=== PATIENT | female | born 1990 | race Caucasian/White ===

== ENCOUNTER 2023-01-18 20:52 | Emergency (ER) | payer OTHER, SELFPAY ==
[2023-01-18 21:19] VITALS: BP 107/78; PULSE 99; TEMP 36.8; O2SAT 96; BMI 21.1
--- NOTE | 2023-01-18 21:43 | CRLHL7_ITS ---
For Patients: As a result of the Century Cures Act, medical imaging exams and procedure reports are released immediately into your electronic medical record. You may view this report before your referring provider. If you have questions, please contact your health care provider. INDICATION: Left side pain. TECHNIQUE: CT abdomen and pelvis without contrast. COMPARISON: None. FINDINGS: Lower chest: Unremarkable. Liver: Normal in size and attenuation. Gallbladder and bile ducts: No stones or inflammation. No biliary ductal dilatation. Spleen: Normal in size. Adrenal glands: Normal in size. No nodules. Pancreas: Unremarkable. No mass or inflammation. Kidneys: Normal in size. No stones or hydronephrosis. GI tract: Unremarkable. Normal in caliber. Normal appendix. Lymph nodes: No lymphadenopathy. Vasculature: Unremarkable. Abdominal wall/Omentum/Peritoneum: Unremarkable. No free air or significant free fluid. Pelvis: Unremarkable. Bones: Unremarkable for age. IMPRESSION: No acute abdominal or pelvic abnormality on this noncontrast examination. No evidence of nephrolithiasis or urolithiasis. Please note that all CT scans at this facility use dose modulation, iterative reconstruction, and/or weight-based dosing when appropriate to reduce radiation dose to as low as reasonably achievable. Dictated by Evgeny Zaragoza MD @ 01/18/2023 10:40:49 PM (Electronically Signed)
--- NOTE | 2023-01-18 21:45 | ED_ITS ---
HPI - General Adult General Chief complaint: Flank Pain Stated complaint: UTI Time Seen by Provider: 01/18/23 21:21 History of Present Illness HPI narrative: Patient is a 32-year-old woman who seen earlier in the clinic for dysuria and left-sided flank pain. Her UA in the clinic was somewhat equivocal and there was some thought that she should wait till her culture comes back before starting any antibiotics. Patient has had continued dysuria but no hematuria. She has significant CVA tenderness on the left. No nausea no vomiting no fevers no chills. No other complaints or concerns patient is otherwise in good health but does have a long history of urinary tract infections. She states she is not at this time. Related Data Previous Rx's Medication Instructions Recorded ciprofloxacin HCl 250 mg tablet 250 mg PO BID #14 tabs 01/18/23 Allergies Allergy/AdvReac Type Severity Reaction Status Date / Time Sulfa (Sulfonamide Allergy Verified 01/18/23 21:17 Antibiotics) Review of Systems Status of ROS: Reports: 10 or more systems reviewed and unremarkable except as noted in History and below PFSH PFSH Surgical History Status post open reduction and internal fixation (ORIF) of fracture ?Z98.890 - Other specified postprocedural states (ICD-10) ?Z87.81 - Personal history of (healed) traumatic fracture (ICD-10) S/P LEEP ?Z98.890 - Other specified postprocedural states (ICD-10) Social History Smoking Status: Never smoker Exam Narrative: Exam Narrative: EXAM GENERAL: Patient appears comfortable and well. EYES: No scleral icterus. ENT: Tympanic membranes and oropharynx normal. THYROID: no thyroid nodules or thyromegaly. LYMPH: No supraclavicular or cervical lymphadenopathy. SKIN: Visible skin seen during exam normal or with benign process only. EXT: No dependent lower extremity pedal edema. HEART: Regular rate and rhythm with no murmurs, rubs, or gallops. LUNGS: Clear to auscultation bilaterally with no crackles or wheezes. ABD: Soft, non tender, non distended. Severe CVA tenderness on the left. PSYCH: Good eye contact, speech is not pressured. Const: Vital Signs, click to edit/add: Vital Signs - 24 hr 01/18/23 21:19 Temperature 98.3 F Pulse Rate [Left P ulse Oximeter] 99 Blood Pressure [Le ft Upper Arm] 107/78 Pulse Oximetry 96 Oxygen Delivery Me thod Room Air Course Course Hospital Course: Patient seen examined serum CBC CMP ordered. If is negative will proceed with CT of the abdomen pelvis stone protocol. Vital Signs Vital signs: Initial Vital Signs Temperature 98.3 F 01/18/23 21:19 Temperature Source Temporal Artery Scan 01/18/23 21:19 Pulse Rate 99 01/18/23 21:19 Pulse Rhythm Regular 01/18/23 21:19 Pulse Strength 3+ Normal 01/18/23 21:19 Blood Pressure 107/78 01/18/23 21:19 Blood Pressure Mean 87 01/18/23 21:19 Pulse Oximetry 96 01/18/23 21:19 Oxygen Delivery Method Room Air 01/18/23 21:19 Vital Signs Temperature 98.3 F 01/18/23 21:19 Pulse Rate 99 01/18/23 21:19 Blood Pressure 107/78 01/18/23 21:19 Pulse Oximetry 96 01/18/23 21:19 Oxygen Delivery Method Room Air 01/18/23 21:19 Temperature 98.3 F 01/18/23 21:19 Pulse Rate 99 01/18/23 21:19 Blood Pressure 107/78 01/18/23 21:19 Pulse Oximetry 96 01/18/23 21:19 Oxygen Delivery Method Room Air 01/18/23 21:19 Medical Decision Making [facility] Narrative Medical decision making narrative: Patient is a 32-year-old woman who has signs of urinary tract infection seen in the clinic earlier today. She underwent a CT of the abdomen pelvis no signs of pyelonephritis kidney stones or any significant pathology. Workup was otherwise unremarkable exam is stable although she does have significant CVA tenderness. I did place her on ciprofloxacin 500 mg b.i.d. for the next week and with outpatient follow-up with her primary physician as needed. Differential Diagnosis Differential Diagnosis: UTI pyelonephritis renal lithiasis pancreatitis acute abdomen appendicitis Lab Data Labs: Lab Results 01/18/23 Range/Units 21:58 WBC 10.85 (4.50-11.00) K/uL RBC 4.63 (4.00-5.20) m/uL Hgb 13.7 (12.0-16.0) gm/dL Hct 41.9 (33.0-51.0) % MCV 91 (80-100) fL MCH 30 (26-34) pg MCHC 33 (32-36) gm/dL RDW Coeff of Krzysztof 12.5 (11.5-15.5) % Plt Count 222 (140-440) K/uL Neut % (Auto) 73.6 H (42.0-72.0) % Lymph % (Auto) 14.5 L (20-44) % Dare % (Auto) 5.3 (0.0-11.0) % Eos % (Auto) 5.6 (0.0-7.0) % Baso % (Auto) 0.7 (0.0-3.0) % Neut # (Auto) 8.00 H (1.7-7.0) K/uL Lymph # (Auto) 1.60 (0.90-2.90) K/uL Dare # (Auto) 0.60 (0.00-0.90) K/UL Eos # (Auto) 0.61 H (0.00-0.50) K/uL Baso # (Auto) 0.08 (0.00-0.30) K/uL Sodium 138 (135-149) mmol/L Potassium 3.9 (3.6-5.1) mmol/L Chloride 104 (96-114) mmol/L Carbon Dioxide 24 (20-32) mmol/L BUN 13 (5-24) mg/dL Creatinine 0.7 (0.5-1.5) mg/dL Estimated Creat Clear 102.86 Estimated GFR 117 ml/min Glucose 96 (60-115) mg/dL Calcium 8.8 (8.4-10.6) mg/dL Total Bilirubin 1.5 (0.1-1.5) mg/dL AST 21 (12-35) U/L ALT 18 (4-35) U/L Alkaline Phosphatase 66 (40-150) U/L Total Protein 7.5 (6.0-8.3) g/dL Albumin 4.6 (3.3-5.0) g/dL HCG, Qual Negative (Negative) Discharge Plan Discharge Clinical Impression: Urinary tract infection Patient Disposition: Home, Self-Care Condition: Stable Instructions: Urinary Tract Infection in Women (ED) Additional Instructions: Cipro Rest Fluids Tylenol Motrin Activity Level: No Restrictions Discharge Diet: Regular Prescriptions: No Action ciprofloxacin HCl 250 mg tablet 250 mg PO BID Qty: 14 0RF Patient Comments: patient unable to get precription until tomorrow due to pharmacy not having medication Follow Up/Referrals: Girish Bourgeois MD [Primary Care Provider] - Stand Alone Forms: [employer] Info Instructions
[2023-01-18 22:08] LABS: Basophils Absolute Auto 0.08 K/uL (0.00-0.30); Basophils Percent Auto 0.7 % (0.0-3.0); Eosinophils Absolute Auto 0.61 K/uL (0.00-0.50); Eosinophils Percent Auto 5.6 % (0.0-7.0); Hematocrit 41.9 % (33.0-51.0); Hemoglobin* 13.7 gm/dL (12.0-16.0); Immature Granulocytes Abs Auto 0.03 K/uL (0.00-0.30); Immature Granulocytes Pct Auto 0.3 %; Lymphocytes Percent Auto 14.5 % (20-44); Mean Corpuscular HGB Conc 33 gm/dL (32-36); Mean Corpuscular Hemoglobin 30 pg (26-34); Mean Corpuscular Volume 91 fL (80-100); Monocytes Percent Auto 5.3 % (0.0-11.0); Neutrophils Percent Auto 73.6 % (42.0-72.0); Platelet Count* 222 K/uL (140-440); RDW Coefficient of Variation % 12.5 % (11.5-15.5); Red Blood Count 4.63 m/uL (4.00-5.20); White Blood Count* 10.85 K/uL (4.50-11.00)
[2023-01-18 22:13] LABS: Slide Review Reflex No
[2023-01-18 22:22] LABS: Albumin* 4.6 g/dL (3.3-5.0); Chloride* 104 mmol/L (96-114); Sodium* 138 mmol/L (135-149)
[2023-01-18 22:23] LABS: Potassium* 3.9 mmol/L (3.6-5.1)
[2023-01-18 22:25] LABS: Alkaline Phosphatase* 66 U/L (40-150); Aspartate Amino Transferase* 21 U/L (12-35); Bilirubin Total* 1.5 mg/dL (0.1-1.5); Blood Urea Nitrogen* 13 mg/dL (5-24); Carbon Dioxide* 24 mmol/L (20-32); Creatinine* 0.7 mg/dL (0.5-1.5); Est. Creatinine Clearance* 102.86; Estimated Glomerular Filt Rate 117 ml/min; Glucose* 96 mg/dL (60-115); Total Protein* 7.5 g/dL (6.0-8.3)
[2023-01-18 22:26] LABS: Alanine Aminotransferase* 18 U/L (4-35); Calcium* 8.8 mg/dL (8.4-10.6)
[2023-01-18 22:47] LABS: HCG Qualitative Serum* Negative (Negative)
== END 2023-01-18 23:27 | disposition home or self-care (01) ==
PROVIDERS: Emergency Provider Internal Medicine; PCP Family Medicine
DX: N39.0 Urinary tract infection, site not specified (principal)
CPT/HCPCS: 36415; 74176; 80053; 84703; 85025; 87086; 87186; 99283; 99284

== ENCOUNTER 2023-05-20 11:51 | Outpatient (CLI) | payer OTHER, SELFPAY | END 2023-05-20 11:52 | disposition home or self-care (01) | PROVIDERS: PCP Family Medicine; Visit Provider Family Medicine | DX: R63.4 Abnormal weight loss (principal); N64.52 Nipple discharge; F41.9 Anxiety disorder, unspecified; Z13.29 Encounter for screening for other suspected endocrine disorder | CPT/HCPCS: 84146; 84443 ==

== ENCOUNTER 2023-05-22 19:25 | Emergency (ER) | payer OTHER, SELFPAY ==
[2023-05-22] VITALS (8 sets, daily range): BP systolic 117–132; BP diastolic 79–82; PULSE 81–106; RESP 18; TEMP 36.1; O2SAT 97–98; BMI 19.8
--- NOTE | 2023-05-22 19:41 | ED.GENADULT ---
HPI - General Adult General Chief complaint: Headache/Migraine Stated complaint: Throat swelling, headache Time Seen by Provider: 05/22/23 19:31 History of Present Illness HPI narrative: patient is concerned about the throat tightening up and seen PCP given some anxiety meds and had globus. was seen 2 days ago. taken and continues with throat issue. gets strep throat a lot and feels like that. concerned uvula is swollen, has deluca, difficulty swelling, and tired. feels something else is the issue 32-year-old woman presenting to the emergency department continue complaint of discomfort and pain in her throat. She is worried that her uvula in particular is swollen. Having difficulty swallowing. Review of records it looks like was just seen and diagnosed with of agoraphobia and suspected globus in primary care evaluation. Has not had a fever. Does have more remote history of tonsillar/peritonsillar abscess per her description that was drained. She does not recall which side. Sounds like she is worried that this might be going on again. She had been evaluated on numerous occasions prior to making this diagnosis before. Was initiated on sertraline and given alprazolam. She says this has not changed her symptoms. Throat lozenges was not helpful. Related Data Previous Rx's Medication Instructions Recorded alprazolam 0.5 mg tablet 0.5 mg PO TID PRN anxiety #20 tabs 05/20/23 sertraline 50 mg tablet See Rx Instructions PO QDAY #30 05/20/23 tabs penicillin V potassium 250 mg/5 mL 500 mg (10 mL) PO BID 10 days #200 05/22/23 oral solution mL prednisolone 15 mg/5 mL oral 40 mg (13.3333 mL) PO DAILY 5 days 05/22/23 solution #80 mL Allergies Allergy/AdvReac Type Severity Reaction Status Date / Time cephalexin Allergy Unknown Anxiety Verified 05/22/23 19:35 Sulfa (Sulfonamide Allergy Verified 05/22/23 19:35 Antibiotics) Review of Systems Status of ROS: Reports: 6 or more systems reviewed and unremarkable except as noted in History and below [facility] Medical History History of abnormal cervical Pap smear ?Z87.42 - Personal history of other diseases of the female genital tract (ICD-10) History of gestational diabetes ?Z86.32 - Personal history of gestational diabetes (ICD-10) Surgical History Status post open reduction and internal fixation (ORIF) of fracture ?Z98.890 - Other specified postprocedural states (ICD-10) ?Z87.81 - Personal history of (healed) traumatic fracture (ICD-10) S/P LEEP ?Z98.890 - Other specified postprocedural states (ICD-10) Social History Smoking Status: Never smoker Do you use any of these nicotine containing products: None How often do you have a drink containing alcohol: never AUDIT-C Alcohol total score: 0 Non-prescribed substance use: denies use Little interest or pleasure in doing things: not at all Feeling down, depressed, or hopeless: not at all Exam Narrative: Exam Narrative: Severe gag reflex limiting exam. Oropharynx is with trace erythema. Perhaps more prominent uvula. She is breathing easily I do not hear any stridor. Lungs are clear. Does appear a little anxious. Neck is supple without lymphadenopathy. No is a supraclavicular crepitus. Lungs are clear. Heart in elevated rate and rhythm without murmur rub or gallop. Extremities are well perfused without edema. No rashes apparent. Const: Vital Signs, click to edit/add: Vital Signs - 24 hr 05/22/23 19:28 05/22/23 20:31 05/22/23 20:32 Temperature 97.0 F L Pulse Rate 88 85 Pulse Rate [Right Pulse Oximeter] 106 H Respiratory Rate 18 Blood Pressure 117/79 Blood Pressure [Ri ght Upper Arm] 132/82 Pulse Oximetry 98 98 98 Oxygen Delivery Me thod Room Air Room Air 05/22/23 20:45 05/22/23 21:00 05/22/23 21:15 Temperature Pulse Rate 81 81 82 Pulse Rate [Right Pulse Oximeter] Respiratory Rate Blood Pressure Blood Pressure [Ri ght Upper Arm] Pulse Oximetry 98 97 97 Oxygen Delivery Me thod 05/22/23 21:30 05/22/23 21:45 Temperature Pulse Rate 91 90 Pulse Rate [Right Pulse Oximeter] Respiratory Rate Blood Pressure Blood Pressure [Ri ght Upper Arm] Pulse Oximetry 97 97 Oxygen Delivery Me thod Documenting provider has reviewed patient's vital signs: yes Course Vital Signs Vital signs: Initial Vital Signs Temperature 97.0 F L 05/22/23 19:28 Temperature Source Temporal Artery Scan 05/22/23 19:28 Pulse Rate 106 H 05/22/23 19:28 Pulse Rhythm Regular 05/22/23 19:28 Respiratory Rate 18 05/22/23 19:28 Blood Pressure 132/82 05/22/23 19:28 Blood Pressure Mean 98 05/22/23 19:28 Blood Pressure Position Sitting 05/22/23 19:28 Pulse Oximetry 98 05/22/23 19:28 Oxygen Delivery Method Room Air 05/22/23 19:28 Vital Signs Temperature 97.0 F L 05/22/23 19:28 Pulse Rate 106 H 05/22/23 19:28 Respiratory Rate 18 05/22/23 19:28 Blood Pressure 132/82 05/22/23 19:28 Pulse Oximetry 98 05/22/23 19:28 Oxygen Delivery Method Room Air 05/22/23 19:28 Temperature 97.0 F L 05/22/23 19:28 Pulse Rate 90 05/22/23 21:45 Respiratory Rate 18 05/22/23 19:28 Blood Pressure 117/79 05/22/23 20:32 Pulse Oximetry 97 05/22/23 21:45 Oxygen Delivery Method Room Air 05/22/23 20:31 Medical Decision Making MDM Narrative Medical decision making narrative: Certainly anxiety is amplifying some of her symptoms are maybe globus but given history we can go ahead and do an IV contrasted CT scan soft tissue neck. Labs are reassuring. There is normal CBC and CRP. I would suspect less likely that there will be any abscess. She is difficult to visualize for tonsillitis. Did receive a L of normal saline in anticipation of IV contrast. CT scan was reviewed by me. I do not see overt abscess or rim enhancement. Radiology over-read as below. Impression: Mild nonspecific prominence of the left greater than right palatine tonsil which could represent mild tonsillitis/pharyngitis change. No evidence of pathologically enlarged lymph node or rim enhancing fluid collection. Presumably what where there is discomfort there could be some inflammation. Might benefit from a course of steroids. Did receive Solu-Medrol in the IV she is also somewhat intolerant at this point of pills. Will continue course of prednisolone. If still having discomfort in couple of days penicillin is also made available. If this discomfort continues then I suppose evaluation by ENT would be in order See patient discharge plan Lab Data Lab results reviewed: Yes I reviewed the patient's lab results Labs: Lab Results 05/22/23 05/22/23 Range/Units 20:00 20:10 WBC 8.60 (4.50-11.00) K/uL RBC 4.93 (4.00-5.20) m/uL Hgb 14.6 (12.0-16.0) gm/dL Hct 43.8 (33.0-51.0) % MCV 89 (80-100) fL MCH 30 (26-34) pg MCHC 33 (32-36) gm/dL RDW Coeff of Krzysztof 11.6 (11.5-15.5) % Plt Count 276 (140-440) K/uL Neut % (Auto) 69.0 (42.0-72.0) % Lymph % (Auto) 23.3 (20-44) % Elbert % (Auto) 6.6 (0.0-11.0) % Eos % (Auto) 0.3 (0.0-7.0) % Baso % (Auto) 0.6 (0.0-3.0) % Neut # (Auto) 5.93 (1.7-7.0) K/uL Lymph # (Auto) 2.00 (0.90-2.90) K/uL Elbert # (Auto) 0.60 (0.00-0.90) K/UL Eos # (Auto) 0.03 (0.00-0.50) K/uL Baso # (Auto) 0.05 (0.00-0.30) K/uL Abs Immat Gran (auto) 0.02 (0.00-0.30) K/uL Imm/Tot Granulo (auto) 0.2 % C-Reactive Protein 0.5 (0.5-1.0) mg/dL Group A Strep DNA NOT DETECTED (Not Detectd) Discharge Plan Discharge Clinical Impression: Enlargement of left palatine tonsil Patient Disposition: Home, Self-Care Condition: Stable Additional Instructions: Can use anesthetic throat lozenges or sprays like Sucrets or Chloraseptic. Can take ibuprofen or acetaminophen or naproxen. I heard you say that you have ear nose and throat follow-up. As you were saying this is a recurrent problem, I think it would be good to continue with that appointment. If does not seem to be improving in a couple of days, I also sent in an antibiotic for you. Of course return for any indication of worsening difficulty swallowing such that you are not able to manage your saliva or increased difficulty breathing. Hydrate. Consider sleeping under the mist of a cool mist humidifier. Prescriptions: New prednisolone 15 mg/5 mL solution 40 mg PO DAILY 5 Days Qty: 80 0RF penicillin V potassium 250 mg/5 mL recon soln 500 mg PO BID 10 Days Qty: 200 0RF No Action sertraline 50 mg tablet See Rx Instructions PO QDAY Qty: 30 5RF Rx Instructions: 25 mg QD for 6D, then 50 mg QD orally every day; alprazolam 0.5 mg tablet 0.5 mg PO TID PRN (Reason: anxiety) Qty: 20 1RF Follow Up/Referrals: Girish Bourgeois MD [Primary Care Provider] - Stand Alone Forms: [employer] Info Instructions
--- NOTE | 2023-05-22 19:57 | CRLHL7_ITS ---
For Patients: As a result of the Cures Act, medical imaging exams and procedure reports are released immediately into your electronic medical record. You may view this report before your referring provider. If you have questions, please contact your health care provider. Indication: Persistent sensation of throat swelling, history of abscess Technique: Volumetric multidetector CT images of the cervical soft tissues were obtained after the administration of low osmolar intravenous contrast. 57 cc Isovue 370 low osmolar intravenous contrast Comparison: None available. Findings: The partially visualized brain parenchyma is normal in attenuation without evidence of abnormal enhancement. The orbits and their contents are within normal limits. The paranasal sinuses are clear. The mastoid air cells are clear. The nasopharynx is unremarkable. The fossae of Rosenmuller are clear. There is mild asymmetrical enlargement of the left greater than right palatine tonsil. The oropharynx is unremarkable. The hypopharynx is clear. The deep spaces of the neck are otherwise preserved. The vocal folds are nonthickened with symmetrical appearance. The thyroid gland is normal in attenuation. There is no evidence of pathologically enlarged cervical lymph node. The jugular veins are patent. The carotid arteries demonstrate no significant atherosclerotic narrowing. The lung apices are clear. The cervical vertebral body heights are grossly maintained with mild straightening of the normal cervical lordosis. There is no significant spondylolisthesis or displaced fracture. Impression: Mild nonspecific prominence of the left greater than right palatine tonsil which could represent mild tonsillitis/pharyngitis change. No evidence of pathologically enlarged lymph node or rim enhancing fluid collection. Please note that all CT scans at this facility use dose modulation, iterative reconstruction, and/or weight-based dosing when appropriate to reduce radiation dose to as low as reasonably achievable. Dictated by Ousmane Escobar MD @ 05/22/2023 8:55:23 PM (Electronically Signed)
[2023-05-22] MEDS: 0.9 % SODIUM CHLORIDE 1000 ml 1,000 ML IV (20:13)
[2023-05-22 20:16] LABS: Basophils Absolute Auto 0.05 K/uL (0.00-0.30); Basophils Percent Auto 0.6 % (0.0-3.0); Eosinophils Absolute Auto 0.03 K/uL (0.00-0.50); Eosinophils Percent Auto 0.3 % (0.0-7.0); Hematocrit 43.8 % (33.0-51.0); Hemoglobin* 14.6 gm/dL (12.0-16.0); Immature Granulocytes Abs Auto 0.02 K/uL (0.00-0.30); Immature Granulocytes Pct Auto 0.2 %; Lymphocytes Percent Auto 23.3 % (20-44); Mean Corpuscular HGB Conc 33 gm/dL (32-36); Mean Corpuscular Hemoglobin 30 pg (26-34); Mean Corpuscular Volume 89 fL (80-100); Monocytes Percent Auto 6.6 % (0.0-11.0); Neutrophils Absolute Auto 5.93 K/uL (1.7-7.0); Platelet Count* 276 K/uL (140-440); RDW Coefficient of Variation % 11.6 % (11.5-15.5); Red Blood Count 4.93 m/uL (4.00-5.20)
[2023-05-22 20:21] LABS: Slide Review Reflex No
[2023-05-22 20:35] LABS: C Reactive Protein* 0.5 mg/dL (0.5-1.0)
[2023-05-22 20:35] LABS: Strep A DNA Probe* NOT DETECTED (Not Detectd)
[2023-05-22] MEDS: METHYLPREDNISOLONE SOD SUCC 62.5 MG/ML (125) 80 MG IVP (21:52)
== END 2023-05-22 22:01 | disposition home or self-care (01) ==
PROVIDERS: Emergency Provider Family Medicine; PCP Family Medicine
DX: J35.1 Hypertrophy of tonsils (principal)
CPT/HCPCS: 36415; 70491; 85025; 86140; 87651; 96374; 99284; J2930; J7030; Q9967

== ENCOUNTER 2023-05-26 17:29 | Emergency (ER) | payer OTHER, SELFPAY ==
[2023-05-26 17:46] VITALS: BP 114/82; PULSE 91; RESP 16; TEMP 36.6; O2SAT 98; BMI 20.1
--- NOTE | 2023-05-26 18:35 | ED.GENADULT ---
HPI - General Adult General Chief complaint: Ear/Nose/Throat Problem Stated complaint: Here on -tonsilitis [id number] improv Time Seen by Provider: 05/26/23 17:44 History of Present Illness HPI narrative: This 32-year-old female reports some symptoms of sore throat and swelling in her throat that started about 6 days ago. She went into her clinic physician who was unable to see her throat very well because she hold her tongue rather high and has class 3 mallipatti visualization of her oropharynx. She was treated for with an anxiety medicine as the provider thought that her symptoms were due to anxiety alone. She returned to the emergency department 4 days ago here because of sore throat and similar symptoms from the couple days before. She had labs and CT imaging with IV contrast done. These returned with reassuring findings. There was some mild swelling of her left tonsil. She received a prescription for penicillin and a steroid. She has been taking these medicines and states that she is not feeling any better. She does not report any fevers or cough. She states that she does feel flushed at times and sometimes feels lightheaded. She arrives here with normal vital signs. Related Data Previous Rx's Medication Instructions Recorded alprazolam 0.5 mg tablet 0.5 mg PO TID PRN anxiety #20 tabs 05/20/23 sertraline 50 mg tablet See Rx Instructions PO QDAY #30 05/20/23 tabs penicillin V potassium 250 mg/5 mL 500 mg (10 mL) PO BID 10 days #200 05/22/23 oral solution mL prednisolone 15 mg/5 mL oral 40 mg (13.3333 mL) PO DAILY 5 days 05/22/23 solution #80 mL Allergies Allergy/AdvReac Type Severity Reaction Status Date / Time cephalexin Allergy Unknown Anxiety Verified 05/22/23 19:35 Sulfa (Sulfonamide Allergy Verified 05/22/23 19:35 Antibiotics) Review of Systems Status of ROS: Reports: 10 or more systems reviewed and unremarkable except as noted in History and below Narrative: Constitutional: No fevers, no weight gain or loss. Eyes: No discharge. No vision changes. HENT: No congestion, no ear pain. Sore throat and a feeling of swelling as described above. Cardiovascular: No chest pain, no palpitations. Respiratory: No shortness of breath, no wheezes, no cough. Gastrointestinal: No abdominal pain, no vomiting, no diarrhea. Genitourinary: No dysuria, no hematuria. Musculoskeletal: Normal range of motion. Skin: No rashes, no pruritis. Neurological: No dizziness, weakness, sensory change, speech change. Endo/Heme/Allergies: No bruising or bleeding. No polydipsia. Pysch: no suicidality, no anxiety, no insomnia. All other systems reviewed and are negative. [facility] Medical History History of abnormal cervical Pap smear ?Z87.42 - Personal history of other diseases of the female genital tract (ICD-10) History of gestational diabetes ?Z86.32 - Personal history of gestational diabetes (ICD-10) Surgical History Status post open reduction and internal fixation (ORIF) of fracture ?Z98.890 - Other specified postprocedural states (ICD-10) ?Z87.81 - Personal history of (healed) traumatic fracture (ICD-10) S/P LEEP ?Z98.890 - Other specified postprocedural states (ICD-10) Social History Smoking Status: Never smoker Do you use any of these nicotine containing products: None How often do you have a drink containing alcohol: never AUDIT-C Alcohol total score: 0 Non-prescribed substance use: denies use Little interest or pleasure in doing things: not at all Feeling down, depressed, or hopeless: not at all Exam Narrative: Exam Narrative: Constitutional: Well-developed, well-nourished, no acute distress. HEENT: Normocephalic, atraumatic. Oropharynx has some mild erythema without exudate or tonsillar hypertrophy. Neck: Normal range of motion. Nontender. Supple. Heart: Regular. No murmurs. Normal rate. Intact distal pulses. Lungs: Clear to auscultation. No chest discomfort. No wheezes, rhonchi, or rales. Abdomen: Normal bowel sounds. Nontender. No rebound tenderness. Genitalia: Deferred. Back: No midline tenderness. Normal range of motion. Extremities: Normal range of motion. No injury. Skin: Intact. No rash. Warm. No erythema or pallor. Neurologic: No altered sensation. No weakness. Alert and oriented. Psychiatric: No suicidality. No anxiety or depression. No insomnia. Nursing notes and vitals signs are reviewed. Const: Vital Signs, click to edit/add: Vital Signs - 24 hr 05/26/23 17:46 Temperature 97.9 F Pulse Rate [Right Pulse Oximeter] 91 Respiratory Rate 16 Blood Pressure [Ri ght Upper Arm] 114/82 Pulse Oximetry 98 Oxygen Delivery Me thod Room Air Course Vital Signs Vital signs: Initial Vital Signs Temperature 97.9 F 05/26/23 17:46 Temperature Source Temporal Artery Scan 05/26/23 17:46 Pulse Rate 91 05/26/23 17:46 Respiratory Rate 16 05/26/23 17:46 Blood Pressure 114/82 05/26/23 17:46 Blood Pressure Mean 92 05/26/23 17:46 Blood Pressure Position Sitting 05/26/23 17:46 Pulse Oximetry 98 05/26/23 17:46 Oxygen Delivery Method Room Air 05/26/23 17:46 Vital Signs Temperature 97.9 F 05/26/23 17:46 Pulse Rate 91 05/26/23 17:46 Respiratory Rate 16 05/26/23 17:46 Blood Pressure 114/82 05/26/23 17:46 Pulse Oximetry 98 05/26/23 17:46 Oxygen Delivery Method Room Air 05/26/23 17:46 Temperature 97.9 F 05/26/23 17:46 Pulse Rate 91 05/26/23 17:46 Respiratory Rate 16 05/26/23 17:46 Blood Pressure 114/82 05/26/23 17:46 Pulse Oximetry 98 05/26/23 17:46 Oxygen Delivery Method Room Air 05/26/23 17:46 Medical Decision Making MDM Narrative Medical decision making narrative: This patient has persistent symptoms of feeling of sore throat and swelling in her throat. She has not had any fevers. She has been taking penicillin and the steroid but reports that she is not feeling any better. On exam she does not have any muffled voice or trismus. Her oropharynx has some mild erythema and there is no sign of any swelling or airway compromise. I did review previous labs and imaging results. The patient may have a tonsillitis that is inadequately treated with penicillin. I also discussed the possibility of some reflux laryngitis or some postnasal drainage that is causing reaction in her throat. I did discuss repeating lab and imaging studies which the patient declined in a process of shared decision making. She did receive a prescription for Keflex which she states has to be in and liquid form. She reports that she is unable to swallow pills. I also recommended using ibuprofen as needed and directed. Additionally she may benefit from a medicine such as Prilosec, Nexium, or Prevacid. Discharge Plan Discharge Clinical Impression: Enlargement of left palatine tonsil, Acute tonsillitis Patient Disposition: Home, Self-Care Condition: Unchanged Additional Instructions: Take medication as prescribed. Consider using medicine such as Prilosec, Prevacid, or Nexium along with an antihistamine such as Arlette or Claritin. Follow up with MD return if worsening. Prescriptions: No Action sertraline 50 mg tablet See Rx Instructions PO QDAY Qty: 30 5RF Rx Instructions: 25 mg QD for 6D, then 50 mg QD orally every day; alprazolam 0.5 mg tablet 0.5 mg PO TID PRN (Reason: anxiety) Qty: 20 1RF prednisolone 15 mg/5 mL solution 40 mg PO DAILY 5 Days Qty: 80 0RF penicillin V potassium 250 mg/5 mL recon soln 500 mg PO BID 10 Days Qty: 200 0RF Follow Up/Referrals: Girish Bourgeois MD [Primary Care Provider] - Stand Alone Forms: [facility] Info Instructions
== END 2023-05-26 19:04 | disposition home or self-care (01) ==
LOC: ED 18:53
PROVIDERS: Emergency Provider Emergency Medicine Emergency Medical Services; PCP Family Medicine
DX: J03.90 Acute tonsillitis, unspecified (principal)
CPT/HCPCS: 99283; 99284

== ENCOUNTER 2023-06-07 13:27 | Emergency (ER) | payer OTHER, SELFPAY ==
[2023-06-07 13:34] VITALS: BMI 19.8
--- NOTE | 2023-06-07 14:02 | CRLHL7_ITS ---
For Patients: As a result of the Century Cures Act, medical imaging exams and procedure reports are released immediately into your electronic medical record. You may view this report before your referring provider. If you have questions, please contact your health care provider. INDICATION: Pressure in neck (left of midline); hx of tonsillar abscess TECHNIQUE: CT of the neck with 58 ml Isovue 370iodinated contrast agent. Coronal and sagittal reconstructions are included. COMPARISON: 05/22/2023 CT neck FINDINGS: There is no mass or other lesion within the soft tissues of the suprahyoid or infrahyoid neck. Stable mild asymmetrical enlargement of the left greater than right palatine tonsil. No cervical lymphadenopathy. The oral cavity, nasopharyngeal, oropharyngeal and hypopharyngeal mucosal spaces are normal. The supraglottic, glottic and infraglottic larynx are unremarkable. The airway including the trachea is normal and is patent. The parotid glands, submandibular and sublingual glands are normal in appearance. The thyroid gland is normal in appearance. The vascular structures opacify normally with contrast material. Scattered mild cervical spondylosis without significant neural foraminal stenosis. No suspicious lytic or blastic osseous lesions. Visualized paranasal sinuses and mastoid air cells are clear. Visualized orbits and intracranial contents are unremarkable. Supraclavicular regions, mediastinum and soft tissues of the imaged chest wall are unremarkable. Visualized portions of the upper lungs are clear. IMPRESSION: 1. No suspicious enhancement or neck mass. Stable mild asymmetrical enlargement of the left greater than right palatine tonsil. No tonsillar abscess or evidence of acute inflammation. 2. Unremarkable deep soft tissues of the neck. No significant changes compared to the prior exam. 3. No cervical lymphadenopathy. Please note that all CT scans at this facility use dose modulation, iterative reconstruction, and/or weight-based dosing when appropriate to reduce radiation dose to as low as reasonably achievable. Dictated by Isaac Chamorro MD @ 06/07/2023 3:06:29 PM (Electronically Signed)
--- NOTE | 2023-06-07 14:05 | ED.GENADULT ---
HPI - General Adult General Chief complaint: Sore Throat Stated complaint: tonsil swelling Time Seen by Provider: 06/07/23 13:29 History of Present Illness HPI narrative: This 32-year-old female comes in reporting ongoing concern about a feeling of pressure in her neck and throat this just left of midline. She has a history of tonsillar abscess but states that she does not really have a sore throat but has a feeling of pressure something wrong in her neck. She was seen in the past for similar symptoms and did have a CT scan of her neck which did show some mild tonsillitis on the left side. She was on penicillin and later took Keflex. She states that she felt better for a couple days well on Keflex but symptoms have rehab turned and are persistent. She does report some anxiety related to this. She has been to her primary physician who said that there was not anything further they could do for her. 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 She has been taking Tums because she does have some reflux symptoms. She states that she is not able to swallow pills so she is restricted to liquid medications. She does not report any fevers. Related Data Previous Rx's Medication Instructions Recorded alprazolam 0.5 mg tablet 0.5 mg PO TID PRN anxiety #20 tabs 05/20/23 sertraline 50 mg tablet See Rx Instructions PO QDAY #30 05/20/23 tabs penicillin V potassium 250 mg/5 mL 500 mg (10 mL) PO BID 10 days #200 05/22/23 oral solution mL famotidine 40 mg tablet (Pepcid) 40 mg PO DAILY #30 tabs 06/07/23 pantoprazole 40 mg granules 40 mg PO DAILY #30 ea 06/07/23 delayed-release for susp in packet (Protonix) Allergies Allergy/AdvReac Type Severity Reaction Status Date / Time cephalexin Allergy Unknown Anxiety Verified 05/22/23 19:35 Sulfa (Sulfonamide Allergy Verified 05/22/23 19:35 Antibiotics) Review of Systems Status of ROS: Reports: 10 or more systems reviewed and unremarkable except as noted in History and below Narrative: Constitutional: No fevers, no weight gain or loss. Eyes: No discharge. No vision changes. HENT: No congestion, no ear pain. Feeling a pressure in her throat. Cardiovascular: No chest pain, no palpitations. Respiratory: No shortness of breath, no wheezes, no cough. Gastrointestinal: No abdominal pain, no vomiting, no diarrhea. Genitourinary: No dysuria, no hematuria. Musculoskeletal: Normal range of motion. Skin: No rashes, no pruritis. Neurological: No dizziness, weakness, sensory change, speech change. Endo/Heme/Allergies: No bruising or bleeding. No polydipsia. Pysch: no suicidality, no insomnia. She has anxiety regarding these symptoms in her throat. All other systems reviewed and are negative. [facility] Medical History History of abnormal cervical Pap smear ?Z87.42 - Personal history of other diseases of the female genital tract (ICD-10) History of gestational diabetes ?Z86.32 - Personal history of gestational diabetes (ICD-10) Surgical History Status post open reduction and internal fixation (ORIF) of fracture ?Z98.890 - Other specified postprocedural states (ICD-10) ?Z87.81 - Personal history of (healed) traumatic fracture (ICD-10) S/P LEEP ?Z98.890 - Other specified postprocedural states (ICD-10) Social History Smoking Status: Never smoker Do you use any of these nicotine containing products: None How often do you have a drink containing alcohol: never AUDIT-C Alcohol total score: 0 Non-prescribed substance use: denies use Little interest or pleasure in doing things: not at all Feeling down, depressed, or hopeless: not at all Exam Narrative: Exam Narrative: Constitutional: Well-developed, well-nourished, no acute distress. HEENT: Normocephalic, atraumatic. Oropharynx appears normal except there is mild erythema without any significant swelling on the left posterior oropharynx. No muffled voice or sign of trismus. Neck: Normal range of motion. Nontender. Supple. Heart: Regular. No murmurs. Normal rate. Intact distal pulses. Lungs: Clear to auscultation. No chest discomfort. No wheezes, rhonchi, or rales. Abdomen: Normal bowel sounds. Nontender. No rebound tenderness. Genitalia: Deferred. Back: No midline tenderness. Normal range of motion. Extremities: Normal range of motion. No injury. Skin: Intact. No rash. Warm. No erythema or pallor. Neurologic: No altered sensation. No weakness. Alert and oriented. Psychiatric: No suicidality. No anxiety or depression. No insomnia. Nursing notes and vitals signs are reviewed. Course Vital Signs Vital signs: Initial Vital Signs Respiratory Effort Normal 06/07/23 13:45 Respiratory Depth Normal 06/07/23 13:45 Respiratory Pattern Normal 06/07/23 13:45 Medical Decision Making MDM Narrative Medical decision making narrative: This patient comes in again with similar symptoms where she feels like there is some pressure in her throat and wonders if she has tonsillitis or an abscess. She does not have any muffled voice or trismus and does not have fever or any abnormal vital signs. Additionally on exam her oropharynx does have mild erythema more on the left side. Otherwise her exam is completely normal. The patient is anxious about this sensation so I did discuss lab and imaging options which in her case would be redundant. She did request a repeat CT scan of the soft tissue of her neck. This was done and shows reassuring results. Her left tonsil is a bit larger than the right and this is unchanged from the previous study. There is no sign of tumor or abscess or other abnormality. As the patient describes her symptoms it sounds more like a globus sensation. I did speak with the ear nose and throat physician on-call, Dr. Chin, with whom she has an appointment next week. He agreed that a reflux medicine may be helpful. The patient does not swallow pills but she would be able to crush Pepcid. Additionally a granular form of Protonix may be helpful for her. I did prescribe both of these medicines. Lab Data Labs: Lab Results 06/07/23 Range/Units 14:15 WBC 5.93 (4.50-11.00) K/uL RBC 4.65 (4.00-5.20) m/uL Hgb 13.6 (12.0-16.0) gm/dL Hct 41.8 (33.0-51.0) % MCV 90 (80-100) fL MCH 29 (26-34) pg MCHC 33 (32-36) gm/dL RDW Coeff of Krzysztof 12.2 (11.5-15.5) % Plt Count 203 (140-440) K/uL Neut % (Auto) 69.3 (42.0-72.0) % Lymph % (Auto) 20.2 (20-44) % Wilkin % (Auto) 7.9 (0.0-11.0) % Eos % (Auto) 1.7 (0.0-7.0) % Baso % (Auto) 0.7 (0.0-3.0) % Neut # (Auto) 4.11 (1.7-7.0) K/uL Lymph # (Auto) 1.20 (0.90-2.90) K/uL Wilkin # (Auto) 0.50 (0.00-0.90) K/UL Eos # (Auto) 0.10 (0.00-0.50) K/uL Baso # (Auto) 0.04 (0.00-0.30) K/uL Abs Immat Gran (auto) 0.01 (0.00-0.30) K/uL Imm/Tot Granulo (auto) 0.2 % ESR < 2 L (2-20) mm/hr C-Reactive Protein < 0.5 L (0.5-1.0) mg/dL Imaging Data CT Soft Tissue Neck: Radiologist's impression: 1. No suspicious enhancement or neck mass. Stable mild asymmetrical enlargement of the left greater than right palatine tonsil. No tonsillar abscess or evidence of acute inflammation. 2. Unremarkable deep soft tissues of the neck. No significant changes compared to the prior exam. 3. No cervical lymphadenopathy. Discharge Plan Discharge Clinical Impression: Globus sensation Patient Disposition: Home, Self-Care Condition: Stable Additional Instructions: Take Pepcid and or Protonix as needed and directed. Follow-up with ear nose and throat clinic appointment as scheduled. Return if worsening. Prescriptions: New famotidine [Pepcid] 40 mg tablet 40 mg PO DAILY Qty: 30 2RF pantoprazole [Protonix] [address] for susp in packet 40 mg PO DAILY Qty: 30 2RF No Action sertraline 50 mg tablet See Rx Instructions PO QDAY Qty: 30 5RF Rx Instructions: 25 mg QD for 6D, then 50 mg QD orally every day; alprazolam 0.5 mg tablet 0.5 mg PO TID PRN (Reason: anxiety) Qty: 20 1RF penicillin V potassium 250 mg/5 mL recon soln 500 mg PO BID 10 Days Qty: 200 0RF Follow Up/Referrals: Girish Bourgeois MD [Primary Care Provider] - Stand Alone Forms: [facility] Info Instructions
[2023-06-07 14:24] LABS: Basophils Absolute Auto 0.04 K/uL (0.00-0.30); Basophils Percent Auto 0.7 % (0.0-3.0); Eosinophils Percent Auto 1.7 % (0.0-7.0); Hematocrit 41.8 % (33.0-51.0); Hemoglobin* 13.6 gm/dL (12.0-16.0); Immature Granulocytes Abs Auto 0.01 K/uL (0.00-0.30); Immature Granulocytes Pct Auto 0.2 %; Lymphocytes Percent Auto 20.2 % (20-44); Mean Corpuscular HGB Conc 33 gm/dL (32-36); Mean Corpuscular Hemoglobin 29 pg (26-34); Mean Corpuscular Volume 90 fL (80-100); Monocytes Percent Auto 7.9 % (0.0-11.0); Neutrophils Absolute Auto 4.11 K/uL (1.7-7.0); Neutrophils Percent Auto 69.3 % (42.0-72.0); Platelet Count* 203 K/uL (140-440); RDW Coefficient of Variation % 12.2 % (11.5-15.5); Red Blood Count 4.65 m/uL (4.00-5.20); White Blood Count* 5.93 K/uL (4.50-11.00)
[2023-06-07 14:41] LABS: Slide Review Reflex No
[2023-06-07 15:00] LABS: C Reactive Protein* < 0.5 mg/dL (0.5-1.0)
[2023-06-07 15:24] LABS: Erythrocyte SedimentationRate* < 2 mm/hr (2-20)
== END 2023-06-07 15:49 | disposition home or self-care (01) ==
PROVIDERS: Emergency Provider Emergency Medicine Emergency Medical Services; PCP Family Medicine
DX: F45.8 Other somatoform disorders (principal)
CPT/HCPCS: 36415; 70491; 85025; 85651; 86140; 99284; Q9967

== ENCOUNTER 2023-06-10 08:08 | Outpatient (CLI) | payer OTHER, SELFPAY ==
--- NOTE | 2023-06-10 08:45 | CRLHL7_ITS ---
For Patients: As a result of the Century Cures Act, medical imaging exams and procedure reports are released immediately into your electronic medical record. You may view this report before your referring provider. If you have questions, please contact your health care provider. DIAGNOSTIC LEFT BREAST MAMMOGRAM WITH COMPUTER-AIDED DETECTION AND TOMOSYNTHESIS LEFT BREAST ULTRASOUND CLINICAL HISTORY: LEFT breast pain. COMPARISON: None. TECHNIQUE: Digital LEFT mammogram in 3 projections. Computer-aided detection and tomosynthesis were used. Real-time ultrasound imaging of LEFT breast with imaging documentation. BREAST COMPOSITION: The breasts are heterogeneously dense, which may obscure small masses FINDINGS: 3D CC/MLO and 2D XCCL LEFT breast mammogram images submitted. No suspicious masses or architectural distortion. No suspicious calcifications or adenopathy. Targeted LEFT breast ultrasound performed in the area of concern 4 o`clock 2-7 cm from the nipple and 3 o`clock 7 cm from the nipple. Normal intramammary lymph nodes are present. No fibrocystic change or suspicious masses. IMPRESSION: No evidence of malignancy. RECOMMENDATIONS: Age-appropriate screening mammography. BI-RADS Category 2: Benign Results and recommendations discussed with the patient. A lay language report of this examination will be provided to the patient. Dictated by Isaac Felton MD @ 06/10/2023 11:44:08 AM/bhavna NI/Dictated by: Isaac Felton MD @ 06/10/2023 11:44:00 AM (Electronically Signed)
--- NOTE | 2023-06-10 09:15 | CRLHL7_ITS ---
For Patients: As a result of the Century Cures Act, medical imaging exams and procedure reports are released immediately into your electronic medical record. You may view this report before your referring provider. If you have questions, please contact your health care provider. PLEASE SEE LEFT ULTRASOUND OF SAME DAY. CRL:bhavna NI/Dictated by: Isaac Felton MD @ 06/10/2023 11:44:00 AM (Electronically Signed)
== END 2023-06-10 08:09 | disposition home or self-care (01) ==
LOC: MAMMO 08:08
PROVIDERS: PCP Family Medicine; Visit Provider Family Medicine
DX: N64.4 Mastodynia (principal); R92.2 Inconclusive mammogram; N64.52 Nipple discharge
CPT/HCPCS: 76642; 77065; G0279

== ENCOUNTER 2023-06-14 16:24 | Emergency (ER) | payer OTHER, SELFPAY ==
[2023-06-14] VITALS (14 sets, daily range): BP systolic 98–115; BP diastolic 74–94; PULSE 75–93; RESP 20; TEMP 36.8; O2SAT 96–100; BMI 19.8
--- NOTE | 2023-06-14 16:56 | ED_ITS ---
HPI - General Adult General Chief complaint: Chest Pain Stated complaint: Pain in L side neck/chest Time Seen by Provider: 06/14/23 16:28 History of Present Illness HPI narrative: has been on Pepcid for 4.5 days due to severe Gerd. states she does not do well on medications. has left sided neck and upper chest pain tightness. the tightness comes and goes and varies from 4-8/10. this symptom is worse today. 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 has been losing weight and not able to eat much. Things get stuck in my throat. has been seeing dr Kemp and had numerous studies for her sxs. has been feeling dizzy and nauseated. has felt super anxious. 32-year-old woman presenting to the emergency department with concern of intolerance to medications and difficulty swallowing. Has been thought to have some degree of globus in the setting of severe GERD. 3 days ago was seen by ear nose and throat and recommended to take PPI and H2 joana. She has been taking the latter but it does not sound as though has been taking the former. She reports had called back trying to get alternative I believe proton pump inhibitor due to significant cost to her. Has taken 4 days now of famotidine. She reports when she 1st took the morning dosing of Pepcid she felt terribly flushed and uncomfortable in the morning. First time she took evening dose became rather nauseated with stomach cramping that next morning resulting in vomiting and diarrhea. Still feels discomfort in the mornings after dosing. Is not clear in my review of records from ENT visit but Ms. Nassar says that there was some suspicion expressed of what I am understanding as esophageal spasm. Still feels like things are getting stuck in her throat. Primarily left-sided symptoms. She has been arranged for a swallow study this coming week and has been referred to GI for an upper endoscopy. Today however began to have swelling in tension in the left neck that came and went somewhat as she tried to control her breathing. Duration of about an hour. She gestures along the SCM of the left side of her neck. This could also radiate down into her anterior chest and over to her left shoulder as well. CT imaging done during ER visit with me sometime back did show some prominence of the left palatine tonsil. History complicated also by marked anxiety. Described that neck was spasmed to 1 side or the other during this episode today. Related Data Previous Rx's Medication Instructions Recorded alprazolam 0.5 mg tablet 0.5 mg PO TID PRN anxiety #20 tabs 05/20/23 sertraline 50 mg tablet See Rx Instructions PO QDAY #30 05/20/23 tabs penicillin V potassium 250 mg/5 mL 500 mg (10 mL) PO BID 10 days #200 05/22/23 oral solution mL famotidine 40 mg tablet (Pepcid) 40 mg PO DAILY #30 tabs 06/07/23 pantoprazole 40 mg granules 40 mg PO DAILY #30 ea 06/07/23 delayed-release for susp in packet (Protonix) Allergies Allergy/AdvReac Type Severity Reaction Status Date / Time cephalexin Allergy Unknown Anxiety Verified 06/11/23 13:53 Sulfa (Sulfonamide Allergy Verified 06/11/23 13:53 Antibiotics) Review of Systems Status of ROS: Reports: 6 or more systems reviewed and unremarkable except as noted in History and below [facility] Medical History History of abnormal cervical Pap smear ?Z87.42 - Personal history of other diseases of the female genital tract (ICD-10) History of gestational diabetes ?Z86.32 - Personal history of gestational diabetes (ICD-10) Surgical History Status post open reduction and internal fixation (ORIF) of fracture ?Z98.890 - Other specified postprocedural states (ICD-10) ?Z87.81 - Personal history of (healed) traumatic fracture (ICD-10) S/P LEEP ?Z98.890 - Other specified postprocedural states (ICD-10) Social History Smoking Status: Never smoker Do you use any of these nicotine containing products: None How often do you have a drink containing alcohol: never How often do you have six or more drinks on one occasion: Never AUDIT-C Alcohol total score: 0 Non-prescribed substance use: denies use Little interest or pleasure in doing things: not at all Feeling down, depressed, or hopeless: not at all service: No Exam Narrative: Exam Narrative: Pleasant. Calm. Accompanied by school each none. She inquires of him for some clarity to questions. Breathing easily. Lungs appear to be clear. I do not hear any stridor. Oropharynx is moist and symmetrical. Heart with regular rate and rhythm. No crepitus to palpation supraclavicular area. She has good range of motion with her neck. The area of pain is described is along what admittedly is perhaps more prominent left-sided sternocleidomastoid muscle versus the right. She is tender to palpation in the mid left sternocleidomastoid. She is also sore to palpation in the left periscapular musculature. Well-perfused peripherally without edema. During exam I do witness 1 pulse/inadvertent contraction in the left sternocleidomastoid. Const: Vital Signs, click to edit/add: Vital Signs - 24 hr 06/14/23 16:32 Temperature 98.3 F Pulse Rate [Pulse Oximeter] 90 Respiratory Rate 20 Blood Pressure [Ri ght Upper Arm] 113/94 H Pulse Oximetry 99 Oxygen Delivery Me thod Room Air Documenting provider has reviewed patient's vital signs: yes Course Vital Signs Vital signs: Initial Vital Signs Temperature 98.3 F 06/14/23 16:32 Temperature Source Temporal Artery Scan 06/14/23 16:32 Pulse Rate 90 06/14/23 16:32 Pulse Rhythm Regular 06/14/23 16:32 Respiratory Rate 20 06/14/23 16:32 Blood Pressure 113/94 H 06/14/23 16:32 Blood Pressure Mean 100 06/14/23 16:32 Blood Pressure Position Supine 06/14/23 16:32 Pulse Oximetry 99 06/14/23 16:32 Oxygen Delivery Method Room Air 06/14/23 16:32 Vital Signs Temperature 98.3 F 06/14/23 16:32 Pulse Rate 90 06/14/23 16:32 Respiratory Rate 20 06/14/23 16:32 Blood Pressure 113/94 H 06/14/23 16:32 Pulse Oximetry 99 06/14/23 16:32 Oxygen Delivery Method Room Air 06/14/23 16:32 Temperature 98.3 F 06/14/23 16:32 Pulse Rate 76 06/14/23 18:31 Respiratory Rate 20 06/14/23 16:32 Blood Pressure 100/80 06/14/23 18:31 Pulse Oximetry 98 06/14/23 18:31 Oxygen Delivery Method Room Air 06/14/23 16:40 Medical Decision Making MDM Narrative Medical decision making narrative: What appears is happening today is contraction or spasm or fasciculation of the left sternocleidomastoid musculature as witnessed here in the emergency department. Underlying concerns not withstanding. I do not think that further evaluation beyond physical exam in history will be beneficial/elucidating here today. Offered reassurance at least with regard to events of today. Clarified also dosing recommendations of PPI and H2 joana per ENT and will be prescribing alternate forms of medication that might be tolerated and importantly, covered by insurance. Did offer support with soft collar has might help musculature relax but ultimately this was deemed too restrictive and it she wanted it off. See lengthy patient discharge plan Medical Records Medical records reviewed: Yes I reviewed the patient's medical records Discharge Plan Discharge Clinical Impression: Strain of sternocleidomastoid muscle, Muscle spasms of neck, Gastroesophageal reflux disease Patient Disposition: Home, Self-Care Condition: Stable Additional Instructions: See handout on stretches for your neck. Continue to focus on hydration. Learn to like smoothies :) Follow-up for this swallow study as scheduled. Dr. Hester had hoped to see you in clinic if you are having 1 of these globus/GERD related spasms (not what I understand was occurring today though). Call to his clinic if that is occurring. Continue to take the if famotidine (somewhere between 20-40 mg as tolerated) if you are able in the evenings. His recommendations were not to eat anything 2 hours before bed. In the morning you were recommended to take a proton pump inhibitor. There are number of these available. Please discuss with your pharmacist the forms and coverage/affordability. Some of them are available in a dissolving tablet like lansoprazole (Prevacid). Esomeprazole (Nexium) is another option. Pantoprazole (Protonix) is what was prescribed by Dr. Hester. I believe you have already looked for covered or cost of omeprazole (Prilosec)? Some other options which may be available include dexlansoprazole (Dexilant) and rabeprazole (AcipHex) Criteria to discuss with the pharmacist is whether or not the medication is: 1. crushable 2. liquid 3. dissolvable 4. covered by insurance 5. otherwise affordable After this discussion with pharmacy considering what is available and in what form that might be tolerable to you as well as what is affordable and/or covered by your insurance, call back to the emergency department and I will try to prescribe for you your preference. [phone] Prescriptions: No Action sertraline 50 mg tablet See Rx Instructions PO QDAY Qty: 30 5RF Rx Instructions: 25 mg QD for 6D, then 50 mg QD orally every day; alprazolam 0.5 mg tablet 0.5 mg PO TID PRN (Reason: anxiety) Qty: 20 1RF penicillin V potassium 250 mg/5 mL recon soln 500 mg PO BID 10 Days Qty: 200 0RF famotidine [Pepcid] 40 mg tablet 40 mg PO DAILY Qty: 30 2RF pantoprazole [Protonix] [address] for susp in packet 40 mg PO DAILY Qty: 30 2RF Follow Up/Referrals: Girish Bourgeois MD [Primary Care Provider] - Stand Alone Forms: [employer] Info Instructions
== END 2023-06-14 18:53 | disposition home or self-care (01) ==
PROVIDERS: Emergency Provider Family Medicine; PCP Family Medicine
DX: K21.9 Gastro-esophageal reflux disease without esophagitis (principal); S16.1XXA Strain of muscle, fascia and tendon at neck level, initial encounter
CPT/HCPCS: 99284

== ENCOUNTER 2023-06-19 07:45 | Outpatient (CLI) | payer OTHER, SELFPAY ==
--- NOTE | 2023-06-19 08:15 | CRLHL7_ITS ---
For Patients: As a result of the Century Cures Act, medical imaging exams and procedure reports are released immediately into your electronic medical record. You may view this report before your referring provider. If you have questions, please contact your health care provider. Technique: Double-contrast esophagram performed after the uneventful administration of effervescent crystals and thick barium followed by thin barium. Fluoroscopy time 58 seconds. Indication: difficulty swallowing,acid reflux Comparison: None. Findings: Esophagus: Normal morphology no ulcer or diverticulum. No stricture or mass. Slight decreased esophageal motility. Gastroesophageal reflux: None. Impression: Mild decreased esophageal motility. Remainder normal. Dictated by Isaac Felton MD @ 06/19/2023 10:04:45 AM (Electronically Signed)
== END 2023-06-19 07:46 | disposition home or self-care (01) ==
LOC: RAD 07:45
PROVIDERS: PCP Family Medicine; Visit Provider Otolaryngology
DX: R13.10 Dysphagia, unspecified (principal)
CPT/HCPCS: 74221

== ENCOUNTER 2023-07-12 10:29 | Outpatient (CLI) | payer OTHER, SELFPAY | END 2023-07-12 10:30 | disposition home or self-care (01) | LOC: NFLDREF 07-15 08:42 | PROVIDERS: PCP Family Medicine; Referring Provider Family Medicine; Visit Provider Family Medicine | DX: R10.9 Unspecified abdominal pain (principal); R14.0 Abdominal distension (gaseous); R42 Dizziness and giddiness; R51.9 Headache, unspecified; F41.9 Anxiety disorder, unspecified | CPT/HCPCS: 80053; 82306; 82607; 86618 ==

== ENCOUNTER 2023-08-14 19:30 | Emergency (ER) | payer OTHER, SELFPAY ==
[2023-08-14 19:37] VITALS: BP 118/77; PULSE 100; RESP 17; TEMP 36.6; O2SAT 99; BMI 18.9
--- NOTE | 2023-08-14 20:30 | CRLHL7_ITS ---
For Patients: As a result of the Cures Act, medical imaging exams and procedure reports are released immediately into your electronic medical record. You may view this report before your referring provider. If you have questions, please contact your health care provider. INDICATION: Tooth pain. Bone fragment from jaw, tooth. TECHNIQUE: CT maxillofacial without contrast. COMPARISON: None. FINDINGS: Facial bones: No fractures or bone lesions. Specifically the nasal bones, temporomandibular joints, maxilla and mandible appear intact. Orbits and globes: Unremarkable. Sinuses: No acute or significant findings. Soft tissues: Unremarkable. IMPRESSION: No sign of acute injury. Dictated by Eric Fall MD @ 08/14/2023 9:25:34 PM Please note that all CT scans at this facility use dose modulation, iterative reconstruction, and/or weight-based dosing when appropriate to reduce radiation dose to as low as reasonably achievable. Dictated by: Eric Fall MD @ 08/14/2023 21:25:39 (Electronically Signed)
--- NOTE | 2023-08-14 20:33 | ED.GENADULT ---
HPI - General Adult General Chief complaint: Dental/Oral/Mouth Injury/Pain Stated complaint: mouth pain Time Seen by Provider: 08/14/23 20:15 History of Present Illness HPI narrative: This 32-year-old female comes in with concern about a fragment of bone that came out of her mouth which her dentist stated came from her jaw. She has been seen by many specialists because of her ID of complaints and has ongoing weight loss. No one is able to find a significant problem that needs treatment. She was told by dentist to come here for evaluation as they were concerned about her increased heart rate and low blood pressure. She arrives here with normal vital signs. She states that there are times when she needs to take liquids and some saltines to try to keep her blood pressure up. Related Data Home Medications Medication Instructions Recorded Confirmed caffeine 100 mg PO 07/11/23 07/11/23 alprazolam 0.5 mg tablet 0.5 mg PO TID PRN 07/19/23 07/19/23 bismuth subsalicylate 262 mg 2 tab PO Q30-60M PRN 07/19/23 07/19/23 chewable tablet (Pepto-Bismol) doxycycline hyclate 100 mg capsule 100 mg PO BID 07/19/23 07/19/23 fluticasone propionate 50 1 spray intranasal QDAY 07/19/23 07/19/23 mcg/actuation nasal spray,suspension metronidazole 250 mg tablet 500 mg PO BID 07/19/23 07/19/23 Previous Rx's Medication Instructions Recorded escitalopram oxalate 5 mg tablet See Rx Instructions PO QDAY #30 07/19/23 tabs rizatriptan 10 mg tablet (Maxalt) 10 mg PO Q2-4H PRN migraine 08/14/23 headache #10 tabs sumatriptan 5 mg/actuation nasal 5 mg intranasal Q2-4H PRN migraine 08/14/23 spray (Imitrex) headache #6 ea Allergies Allergy/AdvReac Type Severity Reaction Status Date / Time cephalexin Allergy Unknown Anxiety Verified 07/11/23 14:36 ciprofloxacin [From Cipro] Allergy Verified 07/11/23 14:36 mold Allergy Verified 07/11/23 14:36 Sulfa (Sulfonamide Allergy Verified 07/11/23 14:36 Antibiotics) Review of Systems Status of ROS: Reports: 10 or more systems reviewed and unremarkable except as noted in History and below Narrative: Constitutional: No fevers. She reports ongoing weight loss and states that she weighs now 110 lb. Eyes: No discharge. No vision changes. HENT: No congestion, no sore throat, no ear pain. Cardiovascular: No chest pain, no palpitations. Respiratory: No shortness of breath, no wheezes, no cough. Gastrointestinal: No abdominal pain, no vomiting, no diarrhea. Genitourinary: No dysuria, no hematuria. Musculoskeletal: Normal range of motion. Skin: No rashes, no pruritis. Neurological: No dizziness, weakness, sensory change, speech change. Endo/Heme/Allergies: No bruising or bleeding. No polydipsia. Pysch: no suicidality, no anxiety, no insomnia. All other systems reviewed and are negative. [facility] Medical History History of abnormal cervical Pap smear ?Z87.42 - Personal history of other diseases of the female genital tract (ICD-10) History of gestational diabetes ?Z86.32 - Personal history of gestational diabetes (ICD-10) Surgical History Status post open reduction and internal fixation (ORIF) of fracture ?Z98.890 - Other specified postprocedural states (ICD-10) ?Z87.81 - Personal history of (healed) traumatic fracture (ICD-10) S/P LEEP ?Z98.890 - Other specified postprocedural states (ICD-10) Social History Smoking Status: Never smoker Do you use any of these nicotine containing products: None How often do you have a drink containing alcohol: never How often do you have six or more drinks on one occasion: Never AUDIT-C Alcohol total score: 0 Non-prescribed substance use: denies use Little interest or pleasure in doing things: not at all Feeling down, depressed, or hopeless: not at all service: No Exam Narrative: Exam Narrative: Constitutional: Well-developed, well-nourished, no acute distress. HEENT: Normocephalic, atraumatic. No sign of dental injury or abscess. She did show me a fragment of bone that she states came out of her mouth. It does not appear to be like bone from a tooth. The dentist states that this was from her job own. Neck: Normal range of motion. Nontender. Supple. Heart: Regular. No murmurs. Normal rate. Intact distal pulses. Lungs: Clear to auscultation. No chest discomfort. No wheezes, rhonchi, or rales. Abdomen: Normal bowel sounds. Nontender. No rebound tenderness. Genitalia: Deferred. Back: No midline tenderness. Normal range of motion. Extremities: Normal range of motion. No injury. Skin: Intact. No rash. Warm. No erythema or pallor. Neurologic: No altered sensation. No weakness. Alert and oriented. Psychiatric: No suicidality. No anxiety or depression. No insomnia. Nursing notes and vitals signs are reviewed. Const: Vital Signs, click to edit/add: Vital Signs - 24 hr 08/14/23 19:37 Temperature 97.8 F Pulse Rate [Pulse Oximeter] 100 Respiratory Rate 17 Blood Pressure [Ri ght Upper Arm] 118/77 Pulse Oximetry 99 Oxygen Delivery Me thod Room Air Course Vital Signs Vital signs: Initial Vital Signs Temperature 97.8 F 08/14/23 19:37 Temperature Source Temporal Artery Scan 08/14/23 19:37 Pulse Rate 100 08/14/23 19:37 Respiratory Rate 17 08/14/23 19:37 Blood Pressure 118/77 08/14/23 19:37 Blood Pressure Mean 90 08/14/23 19:37 Pulse Oximetry 99 08/14/23 19:37 Oxygen Delivery Method Room Air 08/14/23 19:37 Vital Signs Temperature 97.8 F 08/14/23 19:37 Pulse Rate 100 08/14/23 19:37 Respiratory Rate 17 08/14/23 19:37 Blood Pressure 118/77 08/14/23 19:37 Pulse Oximetry 99 08/14/23 19:37 Oxygen Delivery Method Room Air 08/14/23 19:37 Temperature 97.8 F 08/14/23 19:37 Pulse Rate 100 08/14/23 19:37 Respiratory Rate 17 08/14/23 19:37 Blood Pressure 118/77 08/14/23 19:37 Pulse Oximetry 99 08/14/23 19:37 Oxygen Delivery Method Room Air 08/14/23 19:37 Medications Administered Medications: Discontinued Medications Generic Name Dose Route Start Last Admin Trade Name Migdalia PRN Reason Stop Dose Admin Dextrose/Sodium Chloride 1,000 mls @ 1,000 mls/hr 08/14/23 20:30 08/14/23 21:54 5 % Dextrose/0.45% Sod Chlor IV 08/14/23 21:29 Infused .Q1H ONE Infusion Medical Decision Making MDM Narrative Medical decision making narrative: This patient comes in for evaluation of above-stated complaints and had an IV established and labs acquired. She received a L of D5 half-normal saline. Lab results returned with normal findings. Her urinalysis also was negative for infection. Additionally CT scan of her facial bones shows no acute findings. She reports this chip of bone that came out of her mouth which her dentist stated was from her jaw. It seems more likely that this might have been in some of the food that she ate but nevertheless her exam appears normal and her CT imaging is also normal in every way. This was reassuring to the patient. She does report headaches that are frontal in more likely a migraine-type headache. I did prescribe Maxalt which she can try to hopefully bring some relief to her headaches. Lab Data Labs: Lab Results 08/14/23 08/14/23 Range/Units 20:30 21:31 WBC 7.69 (4.50-11.00) K/uL RBC 4.61 (4.00-5.20) m/uL Hgb 13.6 (12.0-16.0) gm/dL Hct 41.6 (33.0-51.0) % MCV 90 (80-100) fL MCH 30 (26-34) pg MCHC 33 (32-36) gm/dL RDW Coeff of Krzysztof 12.6 (11.5-15.5) % Plt Count 242 (140-440) K/uL Neut % (Auto) 60.1 (42.0-72.0) % Lymph % (Auto) 30.0 (20-44) % Woodson % (Auto) 7.7 (0.0-11.0) % Eos % (Auto) 1.6 (0.0-7.0) % Baso % (Auto) 0.3 (0.0-3.0) % Neut # (Auto) 4.63 (1.7-7.0) K/uL Lymph # (Auto) 2.31 (0.90-2.90) K/uL Woodson # (Auto) 0.60 (0.00-0.90) K/UL Eos # (Auto) 0.12 (0.00-0.50) K/uL Baso # (Auto) 0.02 (0.00-0.30) K/uL Abs Immat Gran (auto) 0.02 (0.00-0.30) K/uL Imm/Tot Granulo (auto) 0.3 % Sodium 137 (135-149) mmol/L Potassium 4.0 (3.6-5.1) mmol/L Chloride 103 (96-114) mmol/L Carbon Dioxide 26 (20-32) mmol/L Anion Gap 8 (7-15) mEq/L BUN 11 (5-24) mg/dL Creatinine 0.6 (0.5-1.5) mg/dL Estimated Creat Clear 105.05 Estimated GFR 121 ml/min Glucose 84 (60-115) mg/dL Lactate 1.2 (0.5-1.9) mmol/L Calcium 9.2 (8.4-10.6) mg/dL Urine Color Yellow (Yellow) Urine Appearance Clear (Clear) Urine pH 6.0 (5.0-8.5) Ur Specific [place] 1.010 (1.000-1.030) Urine Protein Negative (Negative) Urine Glucose (UA) 2+ A (Negative) Urine Ketones Negative (Negative) Urine Blood Negative (Negative) Urine Nitrite Negative (Negative) Urine Bilirubin Negative (Negative) Urine Urobilinogen 0.2 (0.2-1.0) Ur Leukocyte Esterase Negative (Negative) Urine RBC 0-2 (0-2) Urine WBC 0-2 (0-5) Ur Squamous Epith Cells None (None-Few) Urine Bacteria None (None) Discharge Plan Discharge Clinical Impression: Headache Patient Disposition: Home, Self-Care Condition: Stable Additional Instructions: Take medication as needed and directed. Increase diet as tolerated. Follow up with MD return if worsening. Prescriptions: New rizatriptan [Maxalt] 10 mg tablet 10 mg PO Q2-4H PRN (Reason: migraine headache) Qty: 10 0RF Rx Instructions: do not exceed 3 doses per 24 hrs sumatriptan [Imitrex] 5 mg/actuation spray,non-aerosol 5 mg intranasal Q2-4H PRN (Reason: migraine headache) Qty: 6 0RF Rx Instructions: into each nostril once; if headache remains, may repeat total dose once after at least 2 hours No Action caffeine 100 mg PO metronidazole 250 mg tablet 500 mg PO BID doxycycline hyclate 100 mg capsule 100 mg PO BID bismuth subsalicylate [Pepto-Bismol] 262 mg tablet,chewable 2 tab PO Q30-60M PRN Rx Instructions: do not exceed 16 tabs per 24 hrs fluticasone propionate 50 mcg/actuation spray,suspension 1 spray intranasal QDAY Rx Instructions: administer into each nostril alprazolam 0.5 mg tablet 0.5 mg PO TID PRN escitalopram oxalate 5 mg tablet See Rx Instructions PO QDAY Qty: 30 0RF Rx Instructions: 5 mg QD for 6D, then 10 mg QD orally every day; Follow Up/Referrals: Girish Bourgeois MD [Primary Care Provider] - Stand Alone Forms: [facility] Info Instructions
[2023-08-14] MEDS: 5 % DEXTROSE/0.45% SOD CHLOR 1,000 ML 1000 ML IV (20:44)
[2023-08-14 20:46] LABS: Basophils Absolute Auto 0.02 K/uL (0.00-0.30); Basophils Percent Auto 0.3 % (0.0-3.0); Eosinophils Absolute Auto 0.12 K/uL (0.00-0.50); Eosinophils Percent Auto 1.6 % (0.0-7.0); Hematocrit 41.6 % (33.0-51.0); Hemoglobin* 13.6 gm/dL (12.0-16.0); Immature Granulocytes Abs Auto 0.02 K/uL (0.00-0.30); Immature Granulocytes Pct Auto 0.3 %; Lactate* 1.2 mmol/L (0.5-1.9); Lymphocytes Absolute Auto 2.31 K/uL (0.90-2.90); Mean Corpuscular HGB Conc 33 gm/dL (32-36); Mean Corpuscular Hemoglobin 30 pg (26-34); Mean Corpuscular Volume 90 fL (80-100); Monocytes Percent Auto 7.7 % (0.0-11.0); Neutrophils Absolute Auto 4.63 K/uL (1.7-7.0); Neutrophils Percent Auto 60.1 % (42.0-72.0); Platelet Count* 242 K/uL (140-440); RDW Coefficient of Variation % 12.6 % (11.5-15.5); Red Blood Count 4.61 m/uL (4.00-5.20); White Blood Count* 7.69 K/uL (4.50-11.00)
[2023-08-14 20:49] LABS: Slide Review Reflex No
[2023-08-14 21:01] LABS: Chloride* 103 mmol/L (96-114); Sodium* 137 mmol/L (135-149)
[2023-08-14 21:04] LABS: Anion Gap 8 mEq/L (7-15); Blood Urea Nitrogen* 11 mg/dL (5-24); Calcium* 9.2 mg/dL (8.4-10.6); Carbon Dioxide* 26 mmol/L (20-32); Creatinine* 0.6 mg/dL (0.5-1.5); Est. Creatinine Clearance* 105.05; Estimated Glomerular Filt Rate 121 ml/min; Glucose* 84 mg/dL (60-115)
[2023-08-14 21:39] LABS: Appearance Urine Clear (Clear); Bilirubin Urine Negative (Negative); Blood Urine Negative (Negative); Color Urine Yellow (Yellow); Glucose Urine 2+ (Negative); Ketones Urine Negative (Negative); Leukocyte Esterase Urine Negative (Negative); Nitrite Urine Negative (Negative); Protein Urine Negative (Negative); Urobilinogen Urine 0.2 (0.2-1.0)
[2023-08-14 21:57] LABS: RBC Urine 0-2 (0-2); WBC Urine 0-2 (0-5)
[2023-08-14 22:36] VITALS: BP 126/79; PULSE 81; RESP 16
== END 2023-08-14 22:37 | disposition home or self-care (01) ==
PROVIDERS: Emergency Provider Emergency Medicine Emergency Medical Services; PCP Family Medicine
DX: R51.9 Headache, unspecified (principal)
CPT/HCPCS: 36415; 70486; 80048; 81001; 83605; 85025; 99283; 99284; S5010

== ENCOUNTER 2023-08-26 10:12 | Outpatient (CLI) | payer OTHER, SELFPAY | END 2023-08-26 10:13 | disposition home or self-care (01) | LOC: LKVREF 10:13 | PROVIDERS: PCP Family Medicine; Visit Provider Family Medicine | DX: R50.9 Fever, unspecified (principal) | CPT/HCPCS: 86140 ==